=== PATIENT | male | born 1990 | race Caucasian/White ===

== ENCOUNTER 2017-08-16 12:15 | Emergency (ER) | payer MEDICAID ==
[~2017-08-16] VITALS: Ht 185.4 cm; Wt 155.0 kg
[2017-08-16 12:21] VITALS: BP 156/91
[2017-08-16] MEDS ORDERED: ketorolac trometh inj. 60 MG/2 ML VIAL IM ONE (13:10)
[2017-08-16] MEDS ORDERED: HYDR-3965 PO (13:14)
== END 2017-08-16 14:09 | disposition home or self-care (01) ==
LOC: ER 12:16
DX: S83.91XA Sprain of unspecified site of right knee, initial encounter (principal); G89.29 Other chronic pain; Z98.890 Other specified postprocedural states; X50.1XXA Overexertion from prolonged static or awkward postures, initial encounter; Y93.89 Activity, other specified; Y92.89 Other specified places as the place of occurrence of the external cause; Y99.8 Other external cause status
CPT/HCPCS: 29505; 73564; 96372; 99284; J1885